=== PATIENT | female | born 1965 | race African-American/Black ===

== ENCOUNTER 2017-09-30 14:12 | Emergency (ER) | payer OTHER ==
[~2017-09-30] VITALS: Ht 160 cm; Wt 68.9 kg
[~2017-09-30 14:12] MED LIST: AMOX1TAB12 PO; ANTIOXIDANT PO; ATENOLOL25 MG; BICARSIM FORTE125 MG PO; CARAFATE SU1 G/10 ML PO; GASTRACE CAPSU1 EACH; INTESTINEX1 CAP PO; KETO10TA2 PO; NEXIUM2.5 MG; OMEPRAZOLE10 MG; ORPH100T PO; PARAFON FORTE500 MG; PROTONIX40 MG PO; RELAFEN500 MG; SYNTHROID50 MCG; SYNTHROID50 MCG PO; TENORMIN25 MG PO; TUSSI PRES-B L120 M1 PO; ULTRAM50 MG PO
[2017-09-30] MEDS ORDERED: METOPROLOL5 MG/5 M2 (14:21)
[2017-09-30] MEDS ORDERED: ESTR0.624 (14:21)
== END 2017-09-30 19:19 | disposition home or self-care (01) ==
LOC: ER 14:12
DX: N83.292 Other ovarian cyst, left side (principal)

== ENCOUNTER 2018-09-01 11:46 | Outpatient (CLI) | payer OTHER ==
[~2018-09-01 11:46] MED LIST changes: +ESTR0.624; +METOPROLOL5 MG/5 M2
[2018-09-02] MEDS ORDERED: EFFEXOR XR150 MG (12:34)
[2018-09-02] MEDS ORDERED: PEPCID20 MG (12:35)
[2018-09-02] MEDS ORDERED: GABAPENTIN100 MG (12:35)
== END 2018-09-01 11:49 | disposition home or self-care (01) ==
LOC: SONOGRAMA 11:46
DX: E04.1 Nontoxic single thyroid nodule (principal)

== ENCOUNTER 2018-09-02 11:05 | Emergency (ER) | payer OTHER ==
[~2018-09-02] VITALS: Ht 160 cm; Wt 67.6 kg
[2018-09-02] MEDS ORDERED: EFFEXOR XR150 MG (12:34)
[2018-09-02] MEDS ORDERED: PEPCID20 MG (12:35)
[2018-09-02] MEDS ORDERED: GABAPENTIN100 MG (12:35)
== END 2018-09-02 16:12 | disposition home or self-care (01) ==
LOC: ER 11:05
DX: R10.2 Pelvic and perineal pain (principal)

== ENCOUNTER 2019-03-06 13:38 | Emergency (ER) | payer OTHER ==
[~2019-03-06] VITALS: Ht 160 cm; Wt 68.0 kg
[~2019-03-06 13:38] MED LIST changes: +EFFEXOR XR150 MG; +GABAPENTIN100 MG; +PEPCID20 MG
[2019-03-06] MEDS ORDERED: KETO10TA2 PO (18:24)
== END 2019-03-06 19:30 | disposition home or self-care (01) ==
LOC: ER 13:38
DX: M94.0 Chondrocostal junction syndrome [Tietze] (principal)

== ENCOUNTER 2019-06-28 06:30 | Day surgery (SDC) | payer OTHER ==
[~2019-06-28 06:30] MED LIST changes: +TOPROL XL25 M1 PO
[2019-06-28] MEDS ORDERED: PERCOCET 5-3251 EACH PO (10:37)
== END 2019-06-28 14:40 | disposition home or self-care (01) ==
LOC: CIR.AMB 06:30 → ADM 07:30 → CIR.AMB 07:30 → EDBD 07:30 → CIR.AMB 14:40
DX: D35.1 Benign neoplasm of parathyroid gland (principal)

== ENCOUNTER 2020-01-22 11:21 | Outpatient (CLI) | payer OTHER ==
[~2020-01-22 11:21] MED LIST changes: +PERCOCET 5-3251 EACH PO
== END 2020-01-22 11:37 | disposition home or self-care (01) ==
LOC: LAB 11:21
PROVIDERS: ATTEND Orthopaedic Surgery
DX: D68.8 Other specified coagulation defects (principal); E78.2 Mixed hyperlipidemia; N39.0 Urinary tract infection, site not specified; R07.89 Other chest pain

== ENCOUNTER 2020-05-02 15:13 | Emergency (ER) | payer OTHER ==
[~2020-05-02] VITALS: Ht 160 cm; Wt 68.9 kg
[2020-05-02] MEDS ORDERED: METOPROLOL SUCC25 MG PO (15:43)
[2020-05-02] MEDS ORDERED: ATORVASTATIN CA10 MG PO (15:43)
[2020-05-02] MEDS ORDERED: GRALISE600 MG PO (15:44)
[2020-05-02] MEDS ORDERED: SYNTHROID125 MCG PO (15:44)
[2020-05-02] MEDS ORDERED: VENLAFAXINE HC150 M1 PO (15:44)
[2020-05-02] MEDS ORDERED: RESTORIL30 MG PO (15:45)
[2020-05-02] MEDS ORDERED: CLONAZEPAM0.5 MG PO (15:45)
[2020-05-02] MEDS ORDERED: DICLOFENAC SODI75 MG PO (16:58)
== END 2020-05-02 17:23 | disposition home or self-care (01) ==
LOC: ER 15:13 → EDBD 15:49 → ER 17:23
DX: M94.0 Chondrocostal junction syndrome [Tietze] (principal)

== ENCOUNTER 2020-05-20 09:19 | Emergency (ER) | payer OTHER ==
[~2020-05-20] VITALS: Ht 160 cm; Wt 68.0 kg
[~2020-05-20 09:19] MED LIST changes: +ATORVASTATIN CA10 MG PO; +CLONAZEPAM0.5 MG PO; +DICLOFENAC SODI75 MG PO; +GRALISE600 MG PO; +METOPROLOL SUCC25 MG PO; +RESTORIL30 MG PO; +SYNTHROID125 MCG PO; +VENLAFAXINE HC150 M1 PO
[2020-05-20] MEDS ORDERED: MIRALAX510 GM PO (16:35)
[2020-05-20] MEDS ORDERED: INTESTINEX680 M1 PO (16:35)
== END 2020-05-20 17:03 | disposition home or self-care (01) ==
LOC: ER 09:19 → EDBD 10:16 → ER 17:03
DX: K59.09 Other constipation (principal); R10.32 Left lower quadrant pain; R10.2 Pelvic and perineal pain; Z03.818 Encounter for observation for suspected exposure to other biological agents ruled out

== ENCOUNTER 2020-07-14 11:54 | Emergency (ER) | payer OTHER ==
[~2020-07-14] VITALS: Ht 160 cm; Wt 68.0 kg
[~2020-07-14 11:54] MED LIST changes: +INTESTINEX680 M1 PO; +MIRALAX510 GM PO
[2020-07-14] MEDS ORDERED: DICY20TA (12:19)
== END 2020-07-14 17:01 | disposition home or self-care (01) ==
LOC: ER 11:54
DX: B34.9 Viral infection, unspecified (principal)

== ENCOUNTER 2020-11-18 14:34 | Emergency (ER) | payer OTHER ==
[~2020-11-18] VITALS: Ht 160 cm; Wt 68.0 kg
[~2020-11-18 14:34] MED LIST changes: +DICY20TA
== END 2020-11-18 19:57 | disposition home or self-care (01) ==
LOC: ER 14:34
DX: B34.9 Viral infection, unspecified (principal); Z03.818 Encounter for observation for suspected exposure to other biological agents ruled out

== ENCOUNTER 2020-12-05 11:55 | Emergency (ER) | payer OTHER ==
[~2020-12-05] VITALS: Ht 160 cm; Wt 68.0 kg
[2020-12-05] MEDS ORDERED: RESTORIL30 M1 PO (12:50)
[2020-12-05] MEDS ORDERED: LIPITOR40 M1 PO (12:50)
[2020-12-05] MEDS ORDERED: NORFLEX100MG PO (16:55)
[2020-12-05] MEDS ORDERED: KETO10TA2 PO (16:55)
== END 2020-12-05 17:05 | disposition home or self-care (01) ==
LOC: ER 11:55
DX: R10.12 Left upper quadrant pain (principal)

== ENCOUNTER 2020-12-09 11:51 | Emergency (ER) | payer OTHER ==
[~2020-12-09] VITALS: Ht 160 cm; Wt 68.0 kg
[~2020-12-09 11:51] MED LIST changes: +LIPITOR40 M1 PO; +NORFLEX100MG PO; +RESTORIL30 M1 PO
[2020-12-09] MEDS ORDERED: LEVSIN/SL0.125 MG PO (17:36)
[2020-12-09] MEDS ORDERED: PYRIDIUM DS200 MG PO (17:36)
== END 2020-12-09 19:40 | disposition home or self-care (01) ==
LOC: ER 11:51
DX: N30.80 Other cystitis without hematuria (principal); Z11.52 Encounter for screening for COVID-19

== ENCOUNTER 2020-12-15 16:42 | Emergency (ER) | payer OTHER ==
[~2020-12-15] VITALS: Ht 160 cm; Wt 68.0 kg
[~2020-12-15 16:42] MED LIST changes: +LEVSIN/SL0.125 MG PO; +PYRIDIUM DS200 MG PO
[2020-12-15] MEDS ORDERED: CORTISPORIN EAR10 M1 OT (22:03)
== END 2020-12-15 22:06 | disposition home or self-care (01) ==
LOC: ER 16:42
DX: R53.81 Other malaise (principal)

== ENCOUNTER 2020-12-17 22:49 | Emergency (ER) | payer OTHER ==
[~2020-12-17] VITALS: Ht 160 cm; Wt 68.0 kg
[~2020-12-17 22:49] MED LIST changes: +CORTISPORIN EAR10 M1 OT
[2020-12-18] MEDS ORDERED: VOLTAREN100 GM (00:06)
[2020-12-18] MEDS ORDERED: GRALISE600 MG (00:07)
[2020-12-18] MEDS ORDERED: ZANAFLEX2 M1 (00:07)
== END 2020-12-18 02:53 | disposition left against medical advice (07) ==
LOC: ER 22:49
DX: Z53.20 Procedure and treatment not carried out because of patient's decision for unspecified reasons (principal)

== ENCOUNTER 2021-03-31 12:02 | Emergency (ER) | payer OTHER ==
[~2021-03-31] VITALS: Ht 160 cm; Wt 66.7 kg
[~2021-03-31 12:02] MED LIST changes: +GRALISE600 MG; +VOLTAREN100 GM; +ZANAFLEX2 M1
== END 2021-03-31 18:13 | disposition home or self-care (01) ==
LOC: ER 12:02 → EDBD 12:08 → ER 12:08
DX: R10.2 Pelvic and perineal pain (principal); M54.59 Other low back pain

== ENCOUNTER 2021-06-02 05:17 | Emergency (ER) | payer OTHER ==
[~2021-06-02] VITALS: Ht 160 cm; Wt 67.6 kg
== END 2021-06-02 09:14 | disposition home or self-care (01) ==
LOC: ER 05:17
DX: M62.830 Muscle spasm of back (principal); M41.86 Other forms of scoliosis, lumbar region; I10 Essential (primary) hypertension

== ENCOUNTER 2021-07-17 08:48 | Outpatient (CLI) | payer OTHER | END 2021-07-17 09:07 | disposition home or self-care (01) | LOC: MRI 08:48 | PROVIDERS: ATTEND Psychiatry & Neurology Clinical Neurophysiology | DX: G45.1 Carotid artery syndrome (hemispheric) (principal); G40.209 Localization-related (focal) (partial) symptomatic epilepsy and epileptic syndromes with complex partial seizures, not intractable, without status epilepticus | CPT/HCPCS: 70551 ==

== ENCOUNTER 2021-07-29 09:37 | Outpatient (CLI) | payer OTHER | END 2021-07-29 09:38 | disposition home or self-care (01) | LOC: NUCLEAR 09:37 | PROVIDERS: ATTEND Psychiatry & Neurology Clinical Neurophysiology | DX: I70.293 Other atherosclerosis of native arteries of extremities, bilateral legs (principal); I87.2 Venous insufficiency (chronic) (peripheral) ==

== ENCOUNTER 2021-12-27 14:12 | Emergency (ER) | payer OTHER ==
[~2021-12-27] VITALS: Ht 160 cm; Wt 67.6 kg
== END 2021-12-27 21:31 | disposition home or self-care (01) ==
LOC: ER 14:12
DX: K29.70 Gastritis, unspecified, without bleeding (principal); R10.9 Unspecified abdominal pain

== ENCOUNTER 2022-02-09 17:00 | Outpatient (CLI) | payer OTHER | END 2022-02-09 17:04 | disposition home or self-care (01) | LOC: LAB 17:00 | DX: U07.1 COVID-19 (principal); B34.1 Enterovirus infection, unspecified ==

== ENCOUNTER 2022-02-10 07:20 | Outpatient (CLI) | payer OTHER | END 2022-02-10 07:22 | disposition home or self-care (01) | LOC: NUCLEAR 07:20 | PROVIDERS: ATTEND Internal Medicine Cardiovascular Disease | DX: I25.10 Atherosclerotic heart disease of native coronary artery without angina pectoris (principal) | CPT/HCPCS: 78452; 93017; A9500 ==

== ENCOUNTER 2022-09-28 11:02 | Outpatient (CLI) | payer OTHER | END 2022-09-28 11:07 | disposition home or self-care (01) | LOC: NUCLEAR 11:02 | PROVIDERS: ATTEND Internal Medicine Cardiovascular Disease | DX: I47.1 Supraventricular tachycardia (principal); R00.2 Palpitations ==

== ENCOUNTER 2022-12-28 09:42 | Emergency (ER) | payer OTHER ==
[~2022-12-28] VITALS: Ht 162.6 cm; Wt 65.8 kg
== END 2022-12-28 15:52 | disposition home or self-care (01) ==
LOC: ER
PROVIDERS: Emergency Medicine
DX: M54.50 Low back pain, unspecified (principal); I10 Essential (primary) hypertension
CPT/HCPCS: 36415; 74176; 96365; 99284; J1885

== ENCOUNTER → 2023-01-28 08:45 | Outpatient (CLI) | payer OTHER ==
[~2023-01-28 08:45] MED LIST changes: +CYMBALTA20 MG PO
== END | disposition home or self-care (01) ==
LOC: NUCLEAR 08:45
PROVIDERS: ATTEND Internal Medicine Geriatric Medicine
DX: I65.29 Occlusion and stenosis of unspecified carotid artery (principal)

== ENCOUNTER 2023-01-28 10:15 | Outpatient (CLI) | payer OTHER | END 2023-01-28 10:26 | disposition home or self-care (01) | LOC: MRI 10:15 | PROVIDERS: ATTEND Internal Medicine Geriatric Medicine | DX: M50.10 Cervical disc disorder with radiculopathy, unspecified cervical region (principal) | CPT/HCPCS: 72141 ==

== ENCOUNTER 2023-08-04 13:52 | Emergency (ER) | payer OTHER ==
[~2023-08-04] VITALS: Ht 160 cm; Wt 63.5 kg
[2023-08-04] MEDS ORDERED: PREMARIN0.45 MG PO (14:12)
[2023-08-04] MEDS ORDERED: LACTOBACILLUS ACIDOPHILUS 1 CAP CAP PO STA (17:25)
[2023-08-04] MEDS ORDERED: FAMOtidine 20 MG TABLET PO STA (17:25)
[2023-08-04] MEDS ORDERED: KETOROLAC TROMETHAMINE 30 MG VIAL IM STA (19:10)
== END 2023-08-04 19:35 | disposition home or self-care (01) ==
LOC: ER 13:53
DX: J06.9 Acute upper respiratory infection, unspecified (principal); Z20.822 Contact with and (suspected) exposure to COVID-19
CPT/HCPCS: 36415; 96372; 99282; J1885

== ENCOUNTER 2023-11-17 11:22 | Emergency (ER) | payer OTHER ==
[~2023-11-17] VITALS: Ht 175.3 cm; Wt 68.0 kg
[~2023-11-17 11:22] MED LIST changes: +PREMARIN0.45 MG PO
[2023-11-17] MEDS ORDERED: DICLOFENAC-MIS1 EAC2 (11:47)
[2023-11-17] MEDS ORDERED: VENLAFAXINE HC150 M1 (11:47)
[2023-11-17] MEDS ORDERED: KETOROLAC TROMETHAMINE 60 MG VIAL IM STA (12:02)
[2023-11-17] MEDS ORDERED: ORPHENADRINE CITRATE 30 MG/ML AMPUL IM STA (12:03)
[2023-11-17] MEDS ORDERED: ACETAMINOPHEN WITH CODEINE 1 UDTAB TABLET PO STA (12:03)
[2023-11-17] MEDS ORDERED: KETOROLAC TROMETHAMINE 60 MG VIAL IM ONE (12:08)
[2023-11-17] MEDS ORDERED: ORPHENADRINE CITRATE 30 MG/ML AMPUL ONE (12:08)
== END 2023-11-17 13:13 | disposition home or self-care (01) ==
LOC: ER 11:22
DX: M54.41 Lumbago with sciatica, right side (principal)
CPT/HCPCS: 72100; 73502; 96372; 99283; J1885; J2360

== ENCOUNTER 2024-01-10 15:12 | Emergency (ER) | payer OTHER ==
[~2024-01-10] VITALS: Ht 160 cm; Wt 59.9 kg
[~2024-01-10 15:12] MED LIST changes: +DICLOFENAC-MIS1 EAC2; +VENLAFAXINE HC150 M1
== END 2024-01-10 19:16 | disposition home or self-care (01) ==
LOC: ER 15:14
DX: R53.1 Weakness (principal)

== ENCOUNTER 2024-01-26 11:48 | Emergency (ER) | payer OTHER ==
[~2024-01-26] VITALS: Ht 160 cm; Wt 59.9 kg
[2024-01-26] MEDS ORDERED: KETOROLAC TROMETHAMINE 60 MG VIAL IM STA (12:41)
[2024-01-26] MEDS ORDERED: ORPHENADRINE CITRATE 30 MG/ML AMPUL IM STA (12:42)
[2024-01-26 13:19] LABS: HEMATOCRIT 40.4 % (36.0-45.00); HEMOGLOBIN 13.8 g/dL (12.0-15.00); MEAN CELL VOLUME 93.5 fL (80.00-100.00); MEAN CORPUSCULAR HEMOGLOBIN 31.9 pg (27.00-32.0); MEAN CORPUSCULAR HGB CONC 34.1 g/dl (32.0-36.0); PLATELET COUNT 244 K/uL (150-450); RED BLOOD COUNT 4.32 M/uL (4.00-6.00); RED CELL DISTRIBUTION WIDTH 13.7 % (11.5-14.5)
[2024-01-26 13:26] LABS: URINE APPEARANCE Clear; URINE BILIRRUBIN Negative (NEGATIVE); URINE BLOOD Trace; URINE COLOR Yellow; URINE GLUCOSE Negative (NEGATIVE); URINE KETONE Negative (NEGATIVE); URINE LEUKOCYTE Negative; URINE NITRATE Negative; URINE PROTEIN Negative (NEGATIVE); URINE UROBILINOGEN 0.2 E.U./dl
[2024-01-26 13:30] LABS: URINE EPITHELIAL CELLS 2.3 uL (0.0-38.8); URINE RBC 17.7 uL (0.0-20.8)
[2024-01-26 13:37] LABS: URINE WBC 0.3 uL (0.0-23.2)
[2024-01-26 14:29] LABS: CALCIUM 9.4 mg/dL (8.5-10.1); CREATININE SERUM 0.71 mg/dL (0.55-1.02); GFR 84.26; POTASSIUM 4.07 mEq/L (3.5-5.1)
== END 2024-01-26 15:46 | disposition home or self-care (01) ==
LOC: ER 11:50
PROVIDERS: General Practice
DX: M54.9 Dorsalgia, unspecified (principal); E03.8 Other specified hypothyroidism; M79.7 Fibromyalgia
CPT/HCPCS: 36415; 74176; 96372; 99284; J1885; J2360

== ENCOUNTER 2024-01-27 13:16 | Outpatient (CLI) | payer OTHER | END 2024-01-27 13:29 | disposition home or self-care (01) | LOC: MRI 13:16 | PROVIDERS: ATTEND Psychiatry & Neurology Clinical Neurophysiology | DX: G45.8 Other transient cerebral ischemic attacks and related syndromes (principal) | CPT/HCPCS: 70551 ==

== ENCOUNTER 2024-03-07 09:18 | Outpatient (CLI) | payer OTHER | END 2024-03-07 09:19 | disposition home or self-care (01) | LOC: NUCLEAR 09:18 | PROVIDERS: ATTEND Internal Medicine Geriatric Medicine | DX: I87.2 Venous insufficiency (chronic) (peripheral) (principal); Z86.718 Personal history of other venous thrombosis and embolism ==

== ENCOUNTER 2024-07-06 12:22 | Emergency (ER) | payer OTHER ==
[~2024-07-06] VITALS: Ht 160 cm; Wt 61.7 kg
[2024-07-06] MEDS ORDERED: ORPHENADRINE CITRATE 30 MG/ML AMPUL IM ONE (13:00)
[2024-07-06] MEDS ORDERED: ORPHENADRINE CITRATE 30 MG/ML AMPUL ONE (13:12)
[2024-07-06] MEDS ORDERED: KETOROLAC TROMETHAMINE 60 MG VIAL IM ONE ×2 (13:15→13:25)
== END 2024-07-06 14:16 | disposition home or self-care (01) ==
LOC: ER 12:25
DX: S09.8XXA Other specified injuries of head, initial encounter (principal); W19.XXXA Unspecified fall, initial encounter; Y93.89 Activity, other specified; Y92.89 Other specified places as the place of occurrence of the external cause; Y99.8 Other external cause status
CPT/HCPCS: 70450; 72125; 96372; 99284; J1885; J2360

== ENCOUNTER 2024-10-03 15:25 | Emergency (ER) | payer OTHER ==
[~2024-10-03] VITALS: Ht 160 cm; Wt 61.7 kg
[2024-10-03 16:27] VITALS: BP 137/79; O2SAT 99
[2024-10-03] MEDS ORDERED: METOCLOPRAMIDE HCL 5 MG/ML VIAL IV ONE (18:00)
[2024-10-03] MEDS ORDERED: DIPHENHYDRAMINE HCL 50 MG/ML VIAL 1ML IV ONE (18:00)
[2024-10-03] MEDS ORDERED: 0.9 % SODIUM CHLORIDE 500 ML IV ONE (18:00)
[2024-10-03] MEDS ORDERED: FAMOTIDINE/PF 20 MG/2 ML VIAL IV ONE (18:00)
[2024-10-03] MEDS ORDERED: FAMOTIDINE/PF 20 MG/2 ML VIAL ONE (18:07)
[2024-10-03] MEDS ORDERED: METOCLOPRAMIDE HCL 5 MG/ML VIAL ONE (18:07)
[2024-10-03] MEDS ORDERED: DIPHENHYDRAMINE HCL 50 MG/ML VIAL 1ML ONE (18:07)
[2024-10-03 18:41] LABS: BASO % 0.7 % (0.1-1.2); EOS % 2.7 % (0.7-7.0); HEMATOCRIT 42.8 % (34.1-44.9); HEMOGLOBIN 14.4 g/dL (11.2-15.7); LYMPH % 42.5 % (19.3-53.1); MEAN CORPUSCULAR HEMOGLOBIN 30.6 pg (25.6-32.2); MONO # 0.47 (0.24-0.82); MONO % 6.4 % (4.7-12.5); NEUT # 3.47 (1.56-6.13); NEUT % 47.6 % (34.0-71.1); PLATELET COUNT 244 K/uL (163-369); RED BLOOD COUNT 4.71 M/uL (3.93-5.22)
[2024-10-03 19:10] LABS: BILIRUBIN TOTAL 0.88 mg/dL (0.3-1.2); CALCIUM 9.7 mg/dL (8.5-10.1); CREATININE SERUM 0.75 mg/dL (0.55-1.02); GFR 78.82; GLOBULINA 3.5 G/DL (2.4-3.5); POTASSIUM 3.64 mEq/L (3.5-5.1); TOTAL PROTEIN 7.5 gm/dL (6.4-8.2)
[2024-10-03 20:05] LABS: COVID-19 AG NEGATIVE (NEGATIVE); INFLUENZA A AG NEGATIVE (NEGATIVE); INFLUENZA B AG NEGATIVE (NEGATIVE)
[2024-10-03] MEDS ORDERED: PEPCID AC20 MG PO (21:19)
== END 2024-10-03 22:36 ==
LOC: ER 15:25
PROVIDERS: Preventive Medicine Public Health & General Preventive Medicine
DX: K29.70 Gastritis, unspecified, without bleeding (principal); M79.7 Fibromyalgia; E03.8 Other specified hypothyroidism; K21.9 Gastro-esophageal reflux disease without esophagitis; G62.9 Polyneuropathy, unspecified; F41.8 Other specified anxiety disorders; R53.81 Other malaise; Z20.822 Contact with and (suspected) exposure to COVID-19

== ENCOUNTER 2024-11-01 09:40 | Outpatient (CLI) | payer OTHER ==
[~2024-11-01 09:40] MED LIST changes: +PEPCID AC20 MG PO
== END 2024-11-01 09:42 | disposition home or self-care (01) ==
LOC: TOM 09:40
PROVIDERS: ATTEND Internal Medicine Gastroenterology
DX: R10.9 Unspecified abdominal pain (principal)
CPT/HCPCS: 74160; Q9965

== ENCOUNTER 2025-03-12 13:07 | Emergency (ER) | payer OTHER ==
[~2025-03-12] VITALS: Ht 160 cm; Wt 62.6 kg
[2025-03-12] MEDS ORDERED: ACETAMINOPHEN 500 MG GEL..CAP PO ONE (15:00)
[2025-03-12] MEDS ORDERED: ORPHENADRINE CITRATE 100 MG TABLET PO ONE (15:00)
[2025-03-12] MEDS ORDERED: DEXAMETHASONE SODIUM PHOSPHATE 4 MG/ML VIAL IM ONE (15:00)
[2025-03-12 17:39] LABS: BASO % 1.2 % (0.1-1.2); EOS # 0.36 (0.04-0.54); EOS % 6.0 % (0.7-7.0); LYMPH # 2.81 (1.18-3.74); LYMPH % 46.7 % (19.3-53.1); MEAN PLATELET VOLUME 10.80 fl (9.4-12.4); MONO # 0.33 (0.24-0.82); MONO % 5.5 % (4.7-12.5); NEUT # 2.45 (1.56-6.13); NEUT % 40.6 % (34.0-71.1); RED CELL DISTRIBUTION WIDTH 12.1 % (11.6-14.4)
[2025-03-12 17:46] LABS: COVID-19 AG NEGATIVE (NEGATIVE)
[2025-03-12 17:54] LABS: INR 1.07
[2025-03-12 18:08] LABS: ALT/SGPT 32 U/L (12-78); AST/SGOT 23 U/L (15-37); BILIRUBIN TOTAL 0.91 mg/dL (0.3-1.2); BUN CREA RATIO 15 (7.0-25.0); CREATININE SERUM 0.80 mg/dL (0.55-1.02); GFR 73.16; GLOBULINA 3.3 G/DL (2.4-3.5); GLUCOSE FASTING 86 mg/dL (65-100); OSMOLALITY SERUM 286 MOSM/KG (275-295); TSH 1.640 uIU/mL (0.358-3.74)
[2025-03-12 18:29] LABS: URINE APPEARANCE Cloudy; URINE BILIRRUBIN Negative (NEGATIVE); URINE BLOOD Trace; URINE COLOR Yellow; URINE GLUCOSE Negative (NEGATIVE); URINE KETONE Negative (NEGATIVE); URINE LEUKOCYTE Negative; URINE NITRATE Negative; URINE PROTEIN Negative (NEGATIVE); URINE UROBILINOGEN 0.2 E.U./dl
[2025-03-12 18:33] LABS: URINE BACTERIA 27.5 uL (0.0-1933); URINE RBC 17.0 uL (0.0-20.8)
[2025-03-12 18:42] LABS: URINE CAST 0.00 uL (0.0-1.40); URINE EPITHELIAL CELLS 1.2 uL (0.0-38.8); URINE WBC 0.4 uL (0.0-23.2)
[2025-03-12] MEDS ORDERED: CYCLOBENZAPRINE10 MG PO (18:55)
[2025-03-12] MEDS ORDERED: ACETAMINOPHEN500 M2 PO (18:55)
== END 2025-03-12 19:35 | disposition home or self-care (01) ==
LOC: ER 13:08
DX: M54.2 Cervicalgia (principal); M54.59 Other low back pain; E03.8 Other specified hypothyroidism; Z20.822 Contact with and (suspected) exposure to COVID-19
CPT/HCPCS: 36415; 72125; 96372; 99284; J1100